=== PATIENT | male | born 1980 | race Caucasian/White ===

== ENCOUNTER 2023-05-16 11:09 | Emergency (ER) | payer BC, OTHER, SELFPAY ==
[~2023-05-16] VITALS: Ht 188 cm; Wt 110.1 kg
[2023-05-16] MEDS ORDERED: LOSA50TA28 (11:27)
[2023-05-16] MEDS ORDERED: AMLO1TAB25 (11:27)
[2023-05-16] MEDS ORDERED: VENTAER INH (11:28)
[2023-05-16] MEDS ORDERED: LOSARTAN 50MG TABLET PO ONE ×2 (12:15→14:35)
[2023-05-16 13:47] VITALS: BP 158/105
[2023-05-16] MEDS ORDERED: LOSA100T46 PO (14:28)
[2023-05-16] MEDS ORDERED: AMLO10TA PO (14:36)
[2023-05-16 14:38] VITALS: BP 160/105
[2023-05-16 14:50] VITALS: TEMP 97.6; O2SAT 98
== END 2023-05-16 14:52 | disposition home or self-care (01) ==
LOC: M ED 11:09
DX: I10 Essential (primary) hypertension (principal); F17.200 Nicotine dependence, unspecified, uncomplicated; F12.90 Cannabis use, unspecified, uncomplicated; Z82.49 Family history of ischemic heart disease and other diseases of the circulatory system